=== PATIENT | female | born 1985 | race American Indian/Alaskan Native ===

== ENCOUNTER 2017-10-04 23:10 | Emergency (ER) | payer MEDICAID ==
[2017-10-04 23:21] VITALS: RESP 16; TEMP 98.9; O2SAT 100
--- NOTE | 2017-10-04 23:57 | ED PDOC ---
HPI: Chest Pain Time Seen by Provider: 10/04/17 23:25 Chief Complaint (Nursing): Chest Pain Chief Complaint (Provider): Chest Pain, Right eye irritation History Per: Patient History/Exam Limitations: no limitations Onset/Duration Of Symptoms: Days (x1) Current Symptoms Are (Timing): Intermittent Episodes Additional Complaint(s): 32 year old female with a past medical history of hypertension presents to the emergency department complaining of right eye redness and discharge, onset today. She also reports her blood pressure has been more elevated than usual for the past several days. She states she ran out of her medications on (Norvasc 10mg), and also recently was started on Hydrochlorothiazide. Patient also complains of chest pain, occurring intermittently since 09/30/17. The last episode of chest pain was earlier today, and currently she is asymptomatic. No headache, dizziness, vision changes, cough, or shortness of breath. PMD: Dr. Francisco Oliveros Past Medical History Reviewed: Historical Data, Nursing Documentation, Vital Signs Vital Signs: Last Vital Signs Temp 98.9 F 10/04/17 23:19 Pulse 76 10/05/17 01:00 Resp 16 10/05/17 01:00 BP 158/98 H 10/05/17 01:00 Pulse Ox 100 10/05/17 00:27 - Medical History PMH: HTN Denies: HIV, Chronic Kidney Disease - Surgical History Surgical History: Other surgeries: Knee surgery x3, Tumor removal - Family History Family History: States: Stroke (father at 48 years old, ) - Immunization History Hx Tetanus Toxoid Vaccination: No Hx Influenza Vaccination: No Hx Pneumococcal Vaccination: No - Home Medications Home Medications: Ambulatory Orders Medication Instructions Recorded amLODIPine [Norvasc] 10 mg PO DAILY #30 tab 01/17/17 Tobramycin 0.3% [Tobrex 0.3% Ophth 1 drop OD Q4 #1 bottle 10/05/17 Soln] amLODIPine [Norvasc] 10 mg PO DAILY #30 tab 10/05/17 - Allergies Allergies/Adverse Reactions: Allergies Allergy/AdvReac Type Severity Reaction Status Date / Time No Known Allergies Allergy Verified 08/18/16 11:45 TANA Risk Score for UA/NSTEMI - TANA Risk Score Age > 64: NO 3 or more CAD Risk Factors: NO Known CAD (Stenosis greater than 50%): NO Aspirin use in past 7 days: NO Severe Angina: NO EKG ST changes greater than 0.5mm: NO Positive Cardiac Marker: NO TANA Score: 0 Risk %: 5% Wells Criteria for PE - Wells Criteria for Pulmonary Embolism Clinical Signs and Symptoms of DVT: No P.E is #1 Diagnosis, or Equally Likely: No Heart Rate >100: No Immobilization at least 3 days;Surgery previous 4 weeks: No Previous, objectively diagnosed PE or DVT: No Hemoptysis: No Malignancy w/treatment within 6 months, or palliative: No Total Score: 0 Review of Systems ROS Statement: Except As Marked, All Systems Reviewed And Found Negative Constitutional: Negative for: Fever Eyes: Positive for: Redness (and clear discharge). Negative for: Pain, Vision Change Cardiovascular: Positive for: Chest Pain (intermittent) Respiratory: Negative for: Cough, Shortness of Breath Gastrointestinal: Negative for: Nausea, Vomiting Neurological: Negative for: Headache, Dizziness Physical Exam - Reviewed Nursing Documentation Reviewed: Yes Vital Signs Reviewed: Yes - Physical Exam Appears: Positive for: Well, Non-toxic, No Acute Distress Head Exam: Positive for: ATRAUMATIC, NORMOCEPHALIC Skin: Positive for: Normal Color, Warm, Dry Eye Exam: Positive for: EOMI, PERRL, Other (right eye with redness and watery discharge noted). Negative for: Periorbital swelling, Periorbital tenderness Neck: Positive for: Normal, Painless ROM, Supple Cardiovascular/Chest: Positive for: Regular Rate, Rhythm, Chest Non Tender. Negative for: Murmur Respiratory: Positive for: Normal Breath Sounds. Negative for: Accessory Muscle Use, Respiratory Distress Pulses-Radial (L): 2+ Pulses-Radial (R): 2+ Gastrointestinal/Abdominal: Positive for: Normal Exam, Soft. Negative for: Tenderness Back: Positive for: Normal Inspection. Negative for: Vertebral Tenderness Extremity: Positive for: Normal ROM, Capillary Refill (< 2 sec). Negative for: Pedal Edema, Calf Tenderness, Deformity Neurologic/Psych: Positive for: Alert, Oriented (x3). Negative for: Motor/ Sensory Deficits - Laboratory Results Result Diagrams: 10/04/17 23:55 10/04/17 23:55 - ECG ECG Rhythm: Positive for: Normal QRS, Sinus Rhythm, Nonspecific Changes (ST/T) Rate: 89 O2 Sat by Pulse Oximetry: 100 (RA) Pulse Ox Interpretation: Normal Medical Decision Making Medical Decision Making: Time: 23:29 Initial Impression: 1). Chest Pain (intermittent, currently resolved), rule out ACS 2). Chronic Hypertension, noncompliant with medications 3). Right eye conjunctivitis Initial Plan: * BMP * CBC w/ differential * Troponin I * EKG * Norvasc 10 mg PO * Reevaluation Scribe Attestation: Documented by Steff Jain, acting as a scribe for Ashlie Cortes MD Provider Scribe Attestation: All medical record entries made by the Scribe were at my direction and personally dictated by me. I have reviewed the chart and agree that the record accurately reflects my personal performance of the history, physical exam, medical decision making, and the department course for this patient. I have also personally directed, reviewed, and agree with the discharge instructions and disposition. Disposition - Clinical Impression Clinical Impression: Chest pain, Conjunctivitis, Hypertension - Patient ED Disposition Is Patient to be Admitted: No Doctor Will See Patient In The: Office Counseled Patient/Family Regarding: Studies Performed, Diagnosis, Need For Followup - Disposition Referrals: [facility] [Outside] Disposition: Routine/Home Disposition Time: 01:15 Condition: GOOD Additional Instructions: Take your medications as instructed. Return for worsening. Follow up with your PCP in 2-3 days. Prescriptions: amLODIPine [Norvasc] 10 mg PO DAILY #30 tab Tobramycin 0.3% [Tobrex 0.3% Ophth Soln] 1 drop OD Q4 #1 bottle Instructions: Chest Pain (ED), Hypertension (ED), Conjunctivitis (ED)
[2017-10-05 00:46] LABS: BASO % 0.8 % (0.0-2.0); EOS # 0.1 K/uL (0.0-0.7); EOS % 1.5 % (0.0-4.0); HEMOGLOBIN 12.5 g/dL (12.0-16.0); LYMPH # 1.4 K/uL (1.0-4.3); LYMPH % 28.2 % (20.0-40.0); MEAN CELL VOLUME 107.9 fl (81.0-99.0); MEAN CORPUSCULAR HEMOGLOBIN 35.6 pg (27.0-31.0); MEAN PLATELET VOLUME 11.5 fl (7.2-11.7); MONO # 0.5 K/uL (0.0-0.8); MONO % 10.5 % (0.0-10.0); NEUT # 2.9 K/uL (1.8-7.0); RBC 3.52 Mil/uL (3.80-5.20); RED CELL DISTRIBUTION WIDTH 14.3 % (11.5-14.5)
[2017-10-05 00:53] LABS: BLOOD UREA NITROGEN 13 mg/dl (7-17); CALCIUM 9.3 mg/dL (8.4-10.2); GFR AFRICAN-AMERICAN > 60; GFR NON-AFRICAN AMERICAN > 60
[2017-10-05 01:00] VITALS: BP 158/98
[2017-10-05 01:18] VITALS: PULSE 89
--- NOTE | 2017-10-05 12:47 | CARD ---
APPROVED REPORT EKG Measurement Heart [id number] <Conclusion> Normal sinus rhythm Possible Left atrial enlargement Nonspecific ST and T wave abnormality Prolonged QT Abnormal ECG
== END 2017-10-05 01:35 | disposition home or self-care (01) ==
LOC: H.ER 23:10
DX: R07.89 Other chest pain (principal); H10.9 Unspecified conjunctivitis; I10 Essential (primary) hypertension; Z91.14 Patient's other noncompliance with medication regimen

== ENCOUNTER 2018-03-02 23:14 | Emergency (ER) | payer MEDICAID ==
--- NOTE | 2018-03-03 00:07 | ED PDOC ---
HPI: General Adult Time Seen by Provider: 03/02/18 23:35 Chief Complaint (Nursing): Med Refill Chief Complaint (Provider): Refill on BP medication History Per: Patient History/Exam Limitations: no limitations Onset/Duration Of Symptoms: Days Have you had recent travel within the past 21 days to any of the following countries: [place], [place], [place] or [place]?: No Additional Complaint(s): 32 yo female with HTN presents wanted BP medication refill. PT states that she has not taken BP medication in 2 weeks and wanted to get checked. PT states that her PMD would not refill it because he has not seen her in 5 months. Denies complaints Past Medical History Reviewed: Historical Data, Nursing Documentation, Vital Signs Vital Signs: Last Vital Signs Temp 98.4 F 03/02/18 23:26 Pulse 111 H 03/02/18 23:26 Resp 18 03/02/18 23:26 BP 117/71 03/02/18 23:26 Pulse Ox 99 03/02/18 23:26 - Medical History PMH: HTN Denies: HIV, Chronic Kidney Disease - Surgical History Surgical History: - Family History Family History: States: Stroke (father at 48 years old, ) - Immunization History Hx Tetanus Toxoid Vaccination: No Hx Influenza Vaccination: No Hx Pneumococcal Vaccination: No - Home Medications Home Medications: Ambulatory Orders Medication Instructions Recorded amLODIPine [Norvasc] 10 mg PO DAILY #30 tab 01/17/17 Tobramycin 0.3% [Tobrex 0.3% Ophth 1 drop OD Q4 #1 bottle 10/05/17 Soln] amLODIPine [Norvasc] 10 mg PO DAILY #30 tab 10/05/17 - Allergies Allergies/Adverse Reactions: Allergies Allergy/AdvReac Type Severity Reaction Status Date / Time No Known Allergies Allergy Verified 08/18/16 11:45 Review of Systems ROS Statement: Except As Marked, All Systems Reviewed And Found Negative Constitutional: Negative for: Fever, Chills Cardiovascular: Negative for: Chest Pain, Palpitations Respiratory: Negative for: Cough, Shortness of Breath Neurological: Negative for: Altered Mental Status, Headache, Dizziness Physical Exam - Reviewed Nursing Documentation Reviewed: Yes Vital Signs Reviewed: Yes - Physical Exam Appears: Positive for: Well, Non-toxic, No Acute Distress Head Exam: Positive for: ATRAUMATIC, NORMAL INSPECTION, NORMOCEPHALIC Skin: Positive for: Normal Color, Warm, DRY Eye Exam: Positive for: Normal appearance ENT: Positive for: Normal ENT Inspection Neck: Positive for: Normal, Painless ROM Cardiovascular/Chest: Positive for: Regular Rate, Rhythm Respiratory: Positive for: Normal Breath Sounds. Negative for: Accessory Muscle Use, Respiratory Distress Gastrointestinal/Abdominal: Positive for: Normal Exam, Soft Back: Positive for: Normal Inspection Extremity: Positive for: Normal ROM Neurologic/Psych: Positive for: Alert - ECG O2 Sat by Pulse Oximetry: 99 Medical Decision Making Medical Decision Making: Repeat BP normal. Disposition - Clinical Impression Clinical Impression: Normal exam - Patient ED Disposition Is Patient to be Admitted: No - Disposition Disposition: Routine/Home Disposition Time: 00:05 Condition: STABLE Instructions: Checking Your Blood Pressure at Home
[2018-03-03 00:56] VITALS: BP 109/67; PULSE 78; RESP 14; TEMP 97.9; O2SAT 98
== END 2018-03-03 00:55 | disposition home or self-care (01) ==
LOC: H.ER 23:14
DX: Z76.0 Encounter for issue of repeat prescription (principal); I10 Essential (primary) hypertension